=== PATIENT | male | born 1950 | race Caucasian/White ===

== ENCOUNTER 2016-06-27 13:38 | Emergency (ER) | payer MEDICARE, OTHER ==
[~2016-06-27] VITALS: Ht 182.9 cm; Wt 94.5 kg
[2016-06-27 14:03] VITALS: BP 155/105; PULSE 96; RESP 16; TEMP 98.7; O2SAT 98
--- NOTE | 2016-06-27 14:57 | PD ---
HPI Chief Complaint: Laceration/Skin Injury Time Seen by Provider: 14:54 Travel History International Travel<30 days: No Contact w/Intl Traveler<30days: No Traveled to known affect area: No History of Present Illness HPI Patient comes in for evaluation of a laceration to his left thumb that occurred shortly prior to arrival. Patient was using a power miter saw that he took the guard off when he got distracted causing a laceration to his thumb. Patient denies doing anything for this other than applying pressure prior to coming to the emergency department. He denies any numbness or tingling. Patient reports pain over the site of the laceration. Patient reports his last tetanus shot was approximately one year ago. PFSH Past Medical History Cardiovascular Problems: Yes (HTN) Diminished Hearing: No Hypertension: Yes Immunizations Current: Yes Tetanus Vaccination: < 5 Years Influenza Vaccination: Yes Past Surgical History Surgical History: No Previous Surgery Social History Alcohol Use: No Tobacco Use: No Substance Use: No Allergies-Medications (Allergen,Severity, Reaction): Coded Allergies: No Known Allergies (Unverified , 06/27/16) Reported Meds & Prescriptions Reported Meds & Active Scripts Active Naprosyn (Naproxen) 500 Mg Tab 500 Mg PO Q12HR PRN Keflex (Cephalexin) 500 Mg Cap 500 Mg PO Q6H 7 Days Review of Systems Except as stated in HPI: all other systems reviewed are Neg Physical Exam Narrative GENERAL: Well-developed, overly nourished, in no acute distress, and non-ill appearing. SKIN: Warm and dry. Laceration to the medial aspect of the distal phalanx of the left thumb. Patient has full range of motion and is neurovascularly intact. HEAD: Atraumatic. Normocephalic. EYES: Pupils equal and round. EOMI. No scleral icterus. No injection or drainage. ENT: No nasal bleeding or discharge. Mucous membranes pink and moist. NECK: Trachea midline. Supple. No nuclear rigidity. RESPIRATORY: No accessory muscle use. No respiratory distress. MUSCULOSKELETAL: No obvious deformities. No clubbing. No cyanosis. No edema. Full range of motion. NEUROLOGICAL: Awake and alert. No obvious cranial nerve deficits. Motor grossly within normal limits. Normal speech. PSYCHIATRIC: Appropriate mood and affect; insight and judgment normal. Data Data Last Documented VS Vital Signs Date Time Temp Pulse Resp B/P Pulse Ox O2 Delivery O2 Flow Rate FiO2 06/27/16 14:03 98.7 96 16 155/105 98 Orders Bupivacaine Pf 0.5% Inj (Marcaine Pf 0.5 (06/27/16 15:00) Lidocaine 1% Inj (50 Ml) (Xylocaine 1% I (06/27/16 15:00) Finger ([id number]) (06/27/16 ) Splint Or Brace Apply/Monitor (06/27/16 16:50) Fiberglass Thumb Spica Adult (06/27/16 ) Sling Cradle Arm (06/27/16 ) MDM Medical Decision Making Medical Screen Exam Complete: Yes Emergency Medical Condition: Yes Differential Diagnosis Laceration, fracture, open fracture, tendon injury, other Narrative Course The patient suffered laceration to the extremity. There was no evidence to suggest foreign bodies. Visual, tactile and radiographic exams were unremarkable without evidence of foreign body at this time. There was no evidence of neurovascular injury. The patient had a normal distal vascular exam , and had full normal motor and sensory exams. There was also no evidence or tendon injury, with normal distal full range of motions, flexion, extension, abduction, adduction and opponens. There was no evidence of local joint space involvement at this time. The patient was irrigated with copious sterile normal saline and primary repair was performed. Please see procedure note. The patient was given signs and symptom warnings for infection, such as increasing pain, redness, swelling, associated heat, pus or fever. The patient was warned of possible unseen foreign body and instructed to return immediately if signs or symptoms develop. The patient was given instructions for timely follow up. The patient agreed with plan of care. Patient in no obvious distress upon re-evaluation. All pertinent Radiology result(s) discussed with patient/family. Patient was asked if they wanted to speak to my attending, which the patient did not wish to do at this time. Any questions/concerns in reference to patient diagnosis/condition discussed and clarified prior to patient's discharge. Reinforced sheer importance of close follow up with hand surgeon. Instructed patient to return to ED immediately, if symptoms return/worsen. Pt showed understanding of above instructions. Further instructions and recommendations were detailed in discharge paperwork. Pt ambulated without difficulty out of ED at discharge. Procedures Procedure Narrative LACERATION REPAIR LOCATION: Left thumb medial aspect LENGTH: Approximately 2-3 cm moderately gaping NUMBER OF STITCHES/SRINATH: 4 simple interrupted REPAIR: Verbal consent was obtained. The area of the laceration was cleaned and prepped. Digital block was performed using lidocaine without epi and Marcaine without epi.. The wound was copiously irrigated and explored without evidence of foreign body, bony involvement, ligament injury, tendon injury, or neurovascular injury. The wound was loosely reapproximated using 4-0 Vicryl. This was a single layer repair. A sterile dressing was applied by nurse. The patient was advised to keep the affected area as clean and dry as possible using soap and water. There were no complications. Patient tolerated the procedure well. Physician Communication Physician Communication [id number] Barragan, hand surgeon extension associate, who recommends loosely reapproximated wound after copious amounts of irrigation, dressing, thumb spica, antibiotics, and following up in his office on Thursday for reevaluation. Diagnosis Primary Impression: Thumb laceration Qualified Code: S61.012A - Thumb laceration, left, initial encounter Referrals: Ketan Barragan MD Patient Instructions: Finger Laceration (ED), General Instructions, How to Use a Sling (GEN), Splint Care (DC) Additional Instructions: Follow-up with Dr. Barragan on Thursday. Take all medication as prescribed. Apply ice to affected area 20 minutes per hour decreased pain and swelling. Elevate left hand to decrease pain and swelling. Return to the emergency department if symptoms get worse. Med/Other Pt SpecificInfo: Prescription(s) given Scripts Naproxen (Naprosyn)500 Mg [id number] Mg PO Q12HR PRN (PAIN SCALE 1 TO 10) #14 TAB Ref 0 Prov:Gordon Maki MD 06/27/16 Cephalexin (Keflex)500 Mg [id number] Mg PO Q6H 7 Days Ref 0 Prov:Gordon Maki MD 06/27/16 Disposition: 01 DISCHARGE HOME Condition: Stable Parmjit Ash Jun 27, 2016 14:57
[2016-06-27] MEDS ORDERED: LIDOCAINE HCL 1% 50 ML VIAL INFIL ONE (15:00)
[2016-06-27] MEDS ORDERED: BUPIVACAINE HCL PF 0.5% 10 ML VIAL INFIL ONE (15:00)
--- NOTE | 2016-06-27 15:35 | RADHPO ---
EXAM DATE/TIME: 06/27/2016 14:56 [facility] COMPARISON: No previous studies available for comparison. INDICATIONS : Hit right thumb on saw. MEDICAL HISTORY : None. SURGICAL HISTORY : None. ENCOUNTER: Initial ACUITY: 1 day PAIN SCORE: 8/10 LOCATION: Left thumb FINDINGS: Examination of the first digit of the left hand demonstrates no evidence of fracture or dislocation. No degenerative changes noted in the interphalangeal joint. No radiopaque foreign bodies are seen. T here is a soft tissue laceration. CONCLUSION: Soft tissue laceration with no underlying bony abnormality. Omari Key MD on June 27, 2016 at 15:26 Board Certified Radiologist. This report was verified electronically.
[2016-06-27] MEDS ORDERED: NAPR500 PO (16:56)
[2016-06-27] MEDS ORDERED: CEPH-460 PO (16:56)
== END 2016-06-27 17:31 | disposition home or self-care (01) ==
LOC: PHED 13:38 → PHEFT 17:31
DX: S61.012A Laceration without foreign body of left thumb without damage to nail, initial encounter (principal); W29.8XXA Contact with other powered hand tools and household machinery, initial encounter
CPT/HCPCS: 12001; 73140; 99283; L3808